=== PATIENT | female | born 1990 | race Caucasian/White ===

== ENCOUNTER → 2017-07-18 | Outpatient (CLI) | payer MEDICAID ==
[~2017-07-18] MED LIST: MOTRIN 400MG.400 MG PO; PERCOCET 5/3251 EACH PO; PRENATAL PLUS1 TA1 PO
--- NOTE | 2017-07-18 16:49 | RADIOLOGY REPORT PS360 ---
CHEST(2 VIEWS-NOT PORTABLE) HISTORY: COUGH ORDERING PHYSICIAN: PRACHI PUGH PATIENT AGE: 26 years COMPARISON: None available FINDINGS: Unremarkable heart size. The left hilum is slightly prominent which may be due to overlying vascularity. Mild adenopathy is an additional consideration. Nodular density overlies the anterior clear space on the lateral view probably related to calcified granuloma. No lobar consolidation or collapse. No acute bony anomalies. IMPRESSION: 1. Mild prominence of the left hilum suggesting mild adenopathy. Follow-up radiograph suggested to confirm stability. 2. Old granulomatous disease.
== END ==
LOC: RAD 16:24
DX: R05 Cough (principal)

== ENCOUNTER → 2017-09-27 | Outpatient (CLI) | payer MEDICAID ==
--- NOTE | 2017-09-27 14:27 | RADIOLOGY REPORT PS360 ---
CHEST(2 VIEWS-NOT PORTABLE) HISTORY: COUGH ORDERING PHYSICIAN: Lanre Acevedo MD PATIENT AGE: 27 years COMPARISON: 07/18/2017 FINDINGS: The cardiomediastinal silhouette and pulmonary vascularity are within normal limits. The lungs are clear without infiltrates, suspicious nodules, or pleural effusions. No acute bony abnormalities. IMPRESSION: Negative chest, no acute finding
== END ==
LOC: RAD 13:44
DX: R05 Cough (principal)